=== PATIENT | male | born 1965 | race Asian ===

== ENCOUNTER 2017-10-12 06:38 | Emergency (ER) | payer MEDICAID ==
[~2017-10-12] VITALS: Ht 165.1 cm; Wt 68.0 kg
[~2017-10-12 06:38] MED LIST: NIAC250T2 PO
[2017-10-12 06:50] VITALS: BP_SYST 129
[2017-10-12 07:30] VITALS: BP_SYST 123
== END 2017-10-12 07:50 | disposition home or self-care (01) ==
LOC: SED 06:38
DX: R42 Dizziness and giddiness (principal); R11.2 Nausea with vomiting, unspecified; E11.9 Type 2 diabetes mellitus without complications; E78.00 Pure hypercholesterolemia, unspecified; Z79.4 Long term (current) use of insulin
CPT/HCPCS: 99283

== ENCOUNTER 2019-09-25 04:39 | Emergency (ER) | payer MEDICAID ==
[~2019-09-25] VITALS: Ht 154.9 cm; Wt 59.0 kg
[2019-09-25 04:50] VITALS: BP_SYST 154
--- NOTE | 2019-09-25 04:55 | NUR ---
Placed in room 4. P To gown for exam. Side rails up.
--- NOTE | 2019-09-25 04:58 | NUR ---
LUPIS Godinez at bedside examining patient.
--- NOTE | 2019-09-25 05:00 | NUR ---
Pt presents to the ER c/o L Lower abdominal pain/pressure x 2 days ago. Pt states pain worsening x today, AxOx4. Denies urination frequency, pain when urinating, n/v/d, any medication for pain. Hx of DM. At home medications include simvastin, metaformin, and aspirin.
[2019-09-25] MEDS ORDERED: SIMV20TA2 PO (05:05)
[2019-09-25] MEDS ORDERED: ASPI-1153 PO (05:05)
[2019-09-25] MEDS ORDERED: GLU850 PO (05:05)
[2019-09-25 05:24] LABS: BILIRUBIN,URINE NEGATIVE (NEGATIVE); BLOOD, URINE NEGATIVE (NEGATIVE); CLARITY/URINE CLEAR (CLEAR); COLOR,URINE YELLOW (YELLOW); GLUCOSE,URINE NEGATIVE (NEGATIVE); KETONES,URINE NEGATIVE (NEGATIVE); LEUKOCYTE ESTERASE ,URINE NEGATIVE (NEGATIVE); NITRITE, URINE NEGATIVE (NEGATIVE); PROTEIN URINE NEGATIVE (NEGATIVE); UROBILINOGEN,URINE 0.2 (0.2-1.0)
--- NOTE | 2019-09-25 05:50 | NUR ---
Pt resting, symmetric chest rise and fall. No complaints at the moment.
[2019-09-25 05:59] LABS: BASOPHILS # (AUTO) 0.1 K/uL (0.0-0.2); BASOPHILS % (AUTO) 0.5 % (0.0-2.0); EOSINOPHILS # (AUTO) 0.2 K/uL (0.0-0.4); HEMATOCRIT 43.3 % (36-54); HEMOGLOBIN 14.6 g/dL (14.0-18.0); LYMPHOCYTES # (AUTO) 3.7 K/uL (1.0-5.5); LYMPHOCYTES % (AUTO) 32.5 % (20.5-51.5); MEAN CORPUSCULAR HEMOGLOBIN 30 pg (27-31); MEAN CORPUSCULAR HGB CONC 34 % (32-36); MEAN CORPUSCULAR VOLUME 88 fL (79.0-98.0); MONOCYTES % (AUTO) 8.8 % (1.7-9.3); NEUTROPHILS # (AUTO) 6.5 K/uL (1.8-7.7); NEUTROPHILS % (AUTO) 56.2 % (40.0-70.0); PLATELET COUNT (AUTO) 219 K/uL (130-430); RED BLOOD CELL COUNT(AUTO) 4.91 MIL/uL (4.2-6.2); RED CELL DISTRIBUTION WIDTH 13.4 % (9.0-15.0); WHITE BLOOD COUNT (AUTO) 11.5 K/uL (4.8-10.8)
[2019-09-25 06:10] LABS: CALCIUM 8.8 mg/dL (8.4-11.0); CREATININE 0.93 mg/dL (0.55-1.30)
[2019-09-25] MEDS ORDERED: LACTULOSE 20 GM/30 ML UDC PO ONE (06:45)
--- NOTE | 2019-09-25 07:09 | NUR ---
Report given to DIOGENES Rose for continuation of care.
[2019-09-25 07:20] VITALS: BP_SYST 154
--- NOTE | 2019-09-25 07:20 | NUR ---
ER discussed with the patient the results and treatment provided. Patient given written and verbal discharge instructions and verbalized understanding. Opportunity for questions provided and answered. Patient in stable condition, last set of vital signs within normal limits, pain scale 0/10, speaking in full sentences and ambulated with a steady gait upon discharge. ID arm band removed. Rx of Miralax given. Patient educated on pain management and to follow up with PMD. Medication side effect fact sheet provided.
== END 2019-09-25 07:20 | disposition home or self-care (01) ==
LOC: SED 04:39
DX: K59.00 Constipation, unspecified (principal); R10.30 Lower abdominal pain, unspecified; E11.9 Type 2 diabetes mellitus without complications; Z79.82 Long term (current) use of aspirin
CPT/HCPCS: 36415; 80048; 81003; 83605; 83690-TC; 85025; 87040-TC; 99284

== ENCOUNTER 2019-11-13 14:33 | Emergency (ER) | payer MEDICAID ==
[~2019-11-13] VITALS: Ht 154.9 cm; Wt 58.1 kg
[~2019-11-13 14:33] MED LIST changes: +ASPI-1153 PO; +GLU850 PO; -NIAC250T2 PO; +SIMV20TA2 PO
[2019-11-13 14:42] VITALS: BP_SYST 143
[2019-11-13] MEDS ORDERED: GLU850 PO (14:49)
[2019-11-13] MEDS ORDERED: ASPI-1153 PO (14:49)
[2019-11-13] MEDS ORDERED: MECL12.584 PO (14:49)
[2019-11-13] MEDS ORDERED: SIMV40TA2 PO (14:49)
[2019-11-13] MEDS ORDERED: MECLIZINE HCL 25 MG TABLET (ANITVERT) PO ONE (15:00)
[2019-11-13 16:59] VITALS: BP_SYST 126
== END 2019-11-13 16:59 | disposition home or self-care (01) ==
LOC: SED 14:33
DX: R42 Dizziness and giddiness (principal); E11.9 Type 2 diabetes mellitus without complications; Z79.899 Other long term (current) drug therapy; Z79.82 Long term (current) use of aspirin
CPT/HCPCS: 70450; 99284; J8597

== ENCOUNTER 2023-03-10 22:17 | Emergency (ER) | payer MEDICAID ==
[~2023-03-10] VITALS: Ht 162.6 cm; Wt 59.0 kg
[~2023-03-10 22:17] MED LIST changes: -ASPI-1153 PO; +ASPI-1393 PO; +MECL-225 PO; +SIMV-345 PO; -SIMV20TA2 PO
[2023-03-10 23:04] VITALS: BP_SYST 148; PULSE 96; RESP 20; TEMP 99; O2SAT 98
[2023-03-11] MEDS ORDERED: BENZ150C4 PO (00:28)
[2023-03-11 00:50] VITALS: BP_SYST 148; PULSE 96; RESP 20; TEMP 99; O2SAT 98
== END 2023-03-11 00:50 | disposition home or self-care (01) ==
LOC: SED 22:17
DX: R05.9 Cough, unspecified (principal); R50.9 Fever, unspecified; E11.9 Type 2 diabetes mellitus without complications; Z79.899 Other long term (current) drug therapy
CPT/HCPCS: 99283